=== PATIENT | female | born 1995 | race Caucasian/White ===

== ENCOUNTER 2020-11-28 20:34 | Emergency (ER) | payer OTHER ==
[2020-11-28 22:03] LABS: HEMOGLOBIN 13.4 gm/dl (12.3-15.3); RED BLOOD COUNT 4.17 M/UL (4.00-5.10); WHITE BLOOD COUNT 6.6 K/UL (4.5-11.0)
[2020-11-28 22:26] LABS: BUN/CREATININE RATIO 10 (0-10)
== END 2020-11-28 22:59 | disposition home or self-care (01) ==
LOC: ER1 20:34
PROVIDERS: Physician Assistant Medical
DX: N93.9 Abnormal uterine and vaginal bleeding, unspecified (principal); Z79.899 Other long term (current) drug therapy; Z87.42 Personal history of other diseases of the female genital tract
CPT/HCPCS: 80053; 81001; 84702; 85025; 99284

== ENCOUNTER 2021-04-29 14:29 | Emergency (ER) | payer OTHER | END 2021-04-29 16:30 | disposition home or self-care (01) | LOC: ER1 14:29 | DX: S61.211A Laceration without foreign body of left index finger without damage to nail, initial encounter (principal); Z23 Encounter for immunization; W26.8XXA Contact with other sharp object(s), not elsewhere classified, initial encounter | CPT/HCPCS: 12001; 90471; 90715; 99282 ==

== ENCOUNTER 2022-03-30 11:01 | Emergency (ER) | payer OTHER | END 2022-03-30 14:58 | disposition home or self-care (01) | LOC: ER1 11:01 | DX: G43.909 Migraine, unspecified, not intractable, without status migrainosus (principal) | CPT/HCPCS: 96361; 96374; 96375; 99283; J1200; J1885; J2765 ==